=== PATIENT | male | born 1970 | race Caucasian/White ===

== ENCOUNTER 2019-09-19 15:05 | Emergency (ER) | payer OTHER ==
[~2019-09-19] VITALS: Ht 193 cm; Wt 86.3 kg
[2019-09-19 15:15] VITALS: BP 187/126
--- NOTE | 2019-09-19 15:28 | PHYS DOC ---
Past History Past Medical History: Other (Crohn's) Additional Past Medical Histor: CROHNS Past Surgical History: Appendectomy, Cholecystectomy, Other Additional Past Surgical Histo: COLON RESECTION, ILEOSTOMY AND REMOVAL, SEVERAL CROHNS SX Alcohol Use: Occasionally General Adult EDM: Chief Complaint: NEURO SYMPTOMS/DEFICITS HPI: HPI: 48-year-old male significant history of Crohn's disease no longer on immunomodulators, who presents for evaluation of sudden onset of left upper extremity pain and tingling that began about 45 minutes prior to arrival, round 2:30 PM this afternoon. He had sudden onset of pain and tingling when attempting to pick something up off the ground. He states that the pain radiated to his left upper chest as well as his left lateral neck. He developed some tingling thereafter, much improved at time of presentation, now isolated to the fingertips of the left hand. No dyspnea, headache or vision changes, speech changes, focal weakness. Review of Systems: Review of Systems: General: No fevers, chills. Eyes: No blurred vision, diplopia. ENT: No nasal congestion, sore throat. CV: No chest pain, edema. Resp: No shortness of breath, cough. GI: No abdominal pain, nausea, vomiting. : No dysuria, hematuria. Neuro: No headache, dizziness, weakness. Reports tingling. MSK: No back pain. Reports left upper extremity pain. Skin: No acute rash, lesion. Heart Score: Risk Factors: Risk Factors: DM, Current or recent (<one month) smoker, HTN, HLP, family history of CAD, obesity. Risk Scores: Score 0 - 3: 2.5% MACE over next 6 weeks - Discharge Home Score 4 - 6: 20.3% MACE over next 6 weeks - Admit for Clinical Observation Score 7 - 10: 72.7% MACE over next 6 weeks - Early Invasive Strategies Allergies: Allergies: Allergies Coded Allergies Type Severity Reaction Last Updated Verified infliximab Allergy Unknown "HEAVY CHEST" 09/19/19 Yes Physical Exam: PE: Gen: NAD. Well nourished. Head: NC/AT Eyes: No scleral icterus. No conjunctival injection. ENT: MMM. Posterior OP clear. Neck: Supple. NT. Full AROM. CV: RRR. Peripheral pulses intact. Resp: CTAB. Abd: Soft. NT. ND. MSK: No peripheral cyanosis. No edema. Neuro: A&Ox3. Strength & sensation grossly intact throughout. No fine motor weakness. No extremity drift. No dysmetria. No aphasia or dysarthria. No visual field cut. No jailyn-neglect. No facial asymmetry. NIH stroke score 0. Skin: Warm. Dry. Psych: Appropriate mood & affect. Current Patient Data: Vital Signs: Vital Signs Date Time Temp Pulse Resp B/P (MAP) Pulse Ox O2 Delivery O2 Flow Rate FiO2 09/19/19 15:15 97.9 89 22 187/126 (146) 97 Room Air EKG: EKG: EKG at 1524. Sinus rhythm. Heart rate 87. Normal intervals. No STEMI. Interpreted by me. Radiology/Procedures: Radiology/Procedures: PROCEDURE: CT HEAD AND CERVICAL SPINE WO Exam: CT head and cervical spine without contrast INDICATION: Left upper extremity tingling/pain TECHNIQUE: Sequential axial images through the head and cervical spine were obtained without the administration of IV contrast. Comparisons: None FINDINGS: Head: No focal parenchymal lesion or hemorrhage is identified. There is no midline shift or sulcal effacement. No acute vascular territory infarction is identified. Zafar-white distinction is preserved. The ventricular system is within normal limits without compression hydrocephalus. The basal cisterns are well maintained. The visualized portions of the paranasal sinuses and mastoid air cells are well-pneumatized. No acute fractures. Extensive periodontal disease is noted. Cervical spine: Vertebral body heights and alignment are well-maintained. Fracture through the cervical spine is not identified. No significant spondylotic change in cervical spine. Visualized paraspinal soft tissues are unremarkable. IMPRESSION: 1. No acute intracranial abnormality. 2. Negative CT C-spine for acute traumatic injury. Exposure: One or more of the following in the visualized dose reduction techniques were utilized for this examination: 1. Automated exposure control 2. Adjustment of the MA and/or KV according to patient size Use of iterative of reconstructive technique Electronically signed by: Soha Goel MD (09/19/2019 4:26 PM) [id number] PROCEDURE: CT ANGIOGRAPHY HEAD AND NECK EXAM: CT Angiogram of the Head and Neck INDICATION: Left upper extremity tingling and pain. TECHNIQUE: CT images were obtained through the head per standard CTA protocol. Multiplanar and 3D reformatted images were generated from the CT dataset on an independent workstation. All CT scans performed at this facility utilize dose optimization techniques as appropriate to the exam, including the following: Automated exposure control and adjustment of the mA and/or KV according to patient size (this includes techniques or standardized protocols for targeted exams where dose is indication/reason for exam). IV CONTRAST: Administered COMPARISON: None FINDINGS: CTA HEAD: No high-grade large vessel stenosis, proximal or branch vessel occlusion, aneurysm, or vascular malformation. ANTERIOR CIRCULATION: Anterior and middle cerebral arteries are widely patent. ANTERIOR COMMUNICATING ARTERY: Patent. POSTERIOR COMMUNICATING ARTERIES: Present bilaterally and patent. POSTERIOR CIRCULATION: Vertebral and basilar arteries are widely patent. Bilateral posterior inferior cerebellar arteries (PICAs), anterior inferior cerebellar arteries (AICAs), and superior cerebellar arteries (SCAs) are visualized and patent. OTHER: No abnormal brain parenchymal enhancement. The paranasal sinuses, mastoid air cells, and tympanic cavities are clear. NECK CTA: AORTA: 3 vessel configuration of arch. No dissection or acute aortic injury. No hemodynamically significant great vessel origin stenosis. RIGHT CAROTID: Common and internal carotid arteries are widely patent, without evidence of flow limiting stenosis or dissection. LEFT CAROTID: Common and internal carotid arteries are widely patent, without evidence of flow limiting stenosis or dissection. VERTEBRAL ARTERIES: Codominant. No evidence of dissection or flow limiting stenosis. SUBCLAVIAN ARTERIES:Subclavian arteries are patent without stenosis. SOFT TISSUES: Soft tissues are unremarkable. Slightly apices show paraseptal pattern emphysema. Where applicable, evaluation of ICA stenosis was performed using NASCET criteria, where the site of greatest stenosis is compared to the diameter of the ICA distal to the carotid bulb. IMPRESSION: Normal CTA of the head and neck with incidental paraseptal pattern emphysema at the lung apices noted.. Electronically signed by: Shanna Park MD (09/19/2019 4:39 PM) [id number] Course & Med Decision Making: Course & Med Decision Making Pertinent Labs and Imaging studies reviewed. (See chart for details) In summary, 48M p/w LUE pain/tingling off sudden onset when lifting a heavy object off the ground. NIHSS zero, no objective paresthesia noted. HDS, hypertensive. No tPA given minimal nondebilitating and rapidly improving symptoms. Suspect peripheral or radicular etiology at this time, though will order typical stroke workup. Asymptomatic as of 1650: Noncontrast CT head and cervical spine are negative. CT angiogram of the head and neck are unrevealing as well. The patient remains asymptomatic. Given the mechanism, with initial onset of pain followed by tingling, now resolved, I suspect radicular, brachial plexus, or peripheral etiology. Regardless, if indeed this was a TIA event, patient has a low risk ABCD2 score of 3 for presenting BP and duration of Sx, suitable for outpatient management. Patient will be discharged with outpatient PMD/neuro follow up. Return precautions given. Dragon Disclaimer: Dragon Disclaimer: This electronic medical record was generated, in whole or in part, using a voice recognition dictation system. Departure Departure: Impression: Primary Impression: Pain of left upper extremity Additional Impression: Tingling of left upper extremity Disposition: 01 HOME, SELF-CARE Condition: STABLE Referrals: PCP,UNKNOWN (PCP) SHUN REGALADO MD Patient Instructions: Paresthesia, [id number] Additional Instructions: Your CT head and cervical spine were unremarkable today. Your CT angiogram of t he head and neck did not show any blood clots or significant disease of the blood vessels. Please follow up with neurology. Consider taking a daily baby aspirin (81 mg). Return to the ED if you develop new or worsening symptoms. GEE CUELLO DO Sep 19, 2019 15:28
[2019-09-19] MEDS ORDERED: IOHEXOL 350 MG/ML 100 ML VIAL. IV ONE (15:30)
--- NOTE | 2019-09-19 15:30 | EKG ---
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
[2019-09-19 15:50] LABS: BASO % 0 % (0-3); EOS # 0.2 x10^3/uL (0.0-0.7); EOS % 2 % (0-3); HEMATOCRIT 41.6 % (39.0-53.0); HEMOGLOBIN 13.9 g/dL (13.0-17.5); LYMPH # 3.4 x10^3/uL (1.0-4.8); LYMPH % 39 % (24-48); MEAN CORPUSCULAR HEMOGLOBIN 32 pg (25-35); MEAN CORPUSCULAR HGB CONC 33 g/dL (31-37); MEAN CORPUSCULAR VOLUME 96 fL (79-100); MONO # 0.5 x10^3/uL (0.0-1.1); MONO % 6 % (0-9); NEUT # 4.5 x10^3uL (1.8-7.7); NEUT % 53 % (31-73); PLATELET COUNT 281 x10^3/uL (140-400); RED BLOOD COUNT 4.36 x10^6/uL (4.30-5.70); RED CELL DISTRIBUTION WIDTH 14.7 % (11.5-14.5); WHITE BLOOD COUNT 8.7 x10^3/uL (4.0-11.0)
[2019-09-19 16:00] LABS: CALCIUM 8.5 mg/dL (8.5-10.1); CREATININE 1.5 mg/dL (0.7-1.3); GFR 50.2; POTASSIUM 3.5 mmol/L (3.5-5.1)
[2019-09-19 16:06] LABS: ALBUMIN 3.4 g/dL (3.4-5.0); MAGNESIUM 1.9 mg/dL (1.8-2.4); TOTAL BILIRUBIN 0.3 mg/dL (0.2-1.0); TOTAL PROTEIN 6.7 g/dL (6.4-8.2)
--- NOTE | 2019-09-19 16:28 | RAD ---
Exam: CT head and cervical spine without contrast INDICATION: Left upper extremity tingling/pain TECHNIQUE: Sequential axial images through the head and cervical spine were obtained without the administration of IV contrast. Comparisons: None FINDINGS: Head: No focal parenchymal lesion or hemorrhage is identified. There is no midline shift or sulcal effacement. No acute vascular territory infarction is identified. Zafar-white distinction is preserved. The ventricular system is within normal limits without compression hydrocephalus. The basal cisterns are well maintained. The visualized portions of the paranasal sinuses and mastoid air cells are well-pneumatized. No acute fractures. Extensive periodontal disease is noted. Cervical spine: Vertebral body heights and alignment are well-maintained. Fracture through the cervical spine is not identified. No significant spondylotic change in cervical spine. Visualized paraspinal soft tissues are unremarkable. IMPRESSION: 1. No acute intracranial abnormality. 2. Negative CT C-spine for acute traumatic injury. Exposure: One or more of the following in the visualized dose reduction techniques were utilized for this examination: 1. Automated exposure control 2. Adjustment of the MA and/or KV according to patient size Use of iterative of reconstructive technique Electronically signed by: Soha Goel MD (09/19/2019 4:26 PM) [id number]
--- NOTE | 2019-09-19 16:42 | RAD ---
EXAM: CT Angiogram of the Head and Neck INDICATION: Left upper extremity tingling and pain. TECHNIQUE: CT images were obtained through the head per standard CTA protocol. Multiplanar and 3D reformatted images were generated from the CT dataset on an independent workstation. All CT scans performed at this facility utilize dose optimization techniques as appropriate to the exam, including the following: Automated exposure control and adjustment of the mA and/or KV according to patient size (this includes techniques or standardized protocols for targeted exams where dose is indication/reason for exam). IV CONTRAST: Administered COMPARISON: None FINDINGS: CTA HEAD: No high-grade large vessel stenosis, proximal or branch vessel occlusion, aneurysm, or vascular malformation. ANTERIOR CIRCULATION: Anterior and middle cerebral arteries are widely patent. ANTERIOR COMMUNICATING ARTERY: Patent. POSTERIOR COMMUNICATING ARTERIES: Present bilaterally and patent. POSTERIOR CIRCULATION: Vertebral and basilar arteries are widely patent. Bilateral posterior inferior cerebellar arteries (PICAs), anterior inferior cerebellar arteries (AICAs), and superior cerebellar arteries (SCAs) are visualized and patent. OTHER: No abnormal brain parenchymal enhancement. The paranasal sinuses, mastoid air cells, and tympanic cavities are clear. NECK CTA: AORTA: 3 vessel configuration of arch. No dissection or acute aortic injury. No hemodynamically significant great vessel origin stenosis. RIGHT CAROTID: Common and internal carotid arteries are widely patent, without evidence of flow limiting stenosis or dissection. LEFT CAROTID: Common and internal carotid arteries are widely patent, without evidence of flow limiting stenosis or dissection. VERTEBRAL ARTERIES: Codominant. No evidence of dissection or flow limiting stenosis. SUBCLAVIAN ARTERIES:Subclavian arteries are patent without stenosis. SOFT TISSUES: Soft tissues are unremarkable. Slightly apices show paraseptal pattern emphysema. Where applicable, evaluation of ICA stenosis was performed using NASCET criteria, where the site of greatest stenosis is compared to the diameter of the ICA distal to the carotid bulb. IMPRESSION: Normal CTA of the head and neck with incidental paraseptal pattern emphysema at the lung apices noted.. Electronically signed by: Shanna Park MD (09/19/2019 4:39 PM) [id number]
== END 2019-09-19 16:59 | disposition home or self-care (01) ==
LOC: ER 15:05
DX: M79.602 Pain in left arm (principal); R20.2 Paresthesia of skin; K50.90 Crohn's disease, unspecified, without complications; Z88.8 Allergy status to other drugs, medicaments and biological substances
CPT/HCPCS: 36415; 70450; 70496; 70498; 72125; 80053; 83735; 84484; 85025; 93005; 99285; Q9967

== ENCOUNTER 2020-05-12 13:22 | Emergency (ER) | payer OTHER ==
[~2020-05-12] VITALS: Ht 193 cm; Wt 88.6 kg
--- NOTE | 2020-05-12 13:56 | EKG ---
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
[2020-05-12 14:14] LABS: BASO # 0.1 x10^3/uL (0.0-0.2); BASO % 1 % (0-3); EOS # 0.1 x10^3/uL (0.0-0.7); EOS % 1 % (0-3); HEMATOCRIT 44.2 % (39.0-53.0); HEMOGLOBIN 14.5 g/dL (13.0-17.5); LYMPH # 3.5 x10^3/uL (1.0-4.8); LYMPH % 35 % (24-48); MEAN CORPUSCULAR HEMOGLOBIN 32 pg (25-35); MEAN CORPUSCULAR HGB CONC 33 g/dL (31-37); MEAN CORPUSCULAR VOLUME 99 fL (79-100); MONO # 0.7 x10^3/uL (0.0-1.1); MONO % 7 % (0-9); NEUT # 5.8 x10^3uL (1.8-7.7); NEUT % 57 % (31-73); PLATELET COUNT 336 x10^3/uL (140-400); RED BLOOD COUNT 4.48 x10^6/uL (4.30-5.70); RED CELL DISTRIBUTION WIDTH 14.9 % (11.5-14.5); WHITE BLOOD COUNT 10.3 x10^3/uL (4.0-11.0)
--- NOTE | 2020-05-12 14:18 | PHYS DOC ---
Past History Past Medical History: Other Additional Past Medical Histor: CROHNS Past Surgical History: Appendectomy, Cholecystectomy, Other Additional Past Surgical Histo: COLON RESECTION, ILEOSTOMY AND REMOVAL, SEVERAL CROHNS SX Alcohol Use: Occasionally Adult General Chief Complaint Chief Complaint: HEADACHE HPI HPI Patient is a male with history of colon resection from Crohn's disease who presents the ED today complaining of mild intermittent right forehead headache that has been going on and off since Tuesday. Patient denies this being the worst headache in his life. Denies any nausea vomiting. Denies any neck pain or fever. Denies anything specifically exacerbating or relieving his symptoms. Review of Systems Review of Systems Constitutional: Denies fever or chills [] Eyes: Denies change in visual acuity, redness, or eye pain [] HENT: Denies nasal congestion or sore throat [] Respiratory: Denies cough or shortness of breath [] Cardiovascular: No additional information not addressed in HPI [] GI: Denies abdominal pain, nausea, vomiting, bloody stools or diarrhea [] : Denies dysuria or hematuria [] Musculoskeletal: Denies back pain or joint pain [] Integument: Denies rash or skin lesions [] Neurologic: Reports right-sided headache focal weakness or sensory changes [] All other systems were reviewed and found to be within normal limits, except as documented in this note. Allergies Allergies Allergies Coded Allergies Type Severity Reaction Last Updated Verified infliximab Allergy Unknown "HEAVY CHEST" 05/12/20 Yes Physical Exam Physical Exam Constitutional: Well developed, well nourished, no acute distress, non-toxic appearance. [] HENT: Normocephalic, atraumatic, bilateral external ears normal, oropharynx moist, no oral exudates, nose normal. [] Eyes: PERRLA, EOMI, conjunctiva normal, no discharge. [] Neck: Normal range of motion, no tenderness, supple, no stridor. [] Cardiovascular:Heart rate regular rhythm, no murmur [] Lungs & Thorax: Bilateral breath sounds clear to auscultation [] Abdomen: Bowel sounds normal, soft, no tenderness, no masses, no pulsatile masses. [] Skin: Warm, dry, no erythema, no rash. [] Back: No tenderness, no CVA tenderness. [] Extremities: No tenderness, no cyanosis, no clubbing, ROM intact, no edema. [] Neurologic: Alert and oriented X 3, normal motor function, normal sensory function, no focal deficits noted. Cranial nerves II through XII intact Psychologic: Affect normal, judgement normal, mood normal. [] Current Patient Data Vital Signs Vital Signs Date Time Temp Pulse Resp B/P (MAP) Pulse Ox O2 Delivery O2 Flow Rate FiO2 05/12/20 13:28 98.4 105 18 158/115 (129) 97 Room Air EKG EKG [address] Tee sinus rhythm with left ventricular hypertrophy no STEMI[] Radiology/Procedures Radiology/Procedures [] Heart Score Risk Factors: Risk Factors: DM, Current or recent (<one month) smoker, HTN, HLP, family history of CAD, obesity. Risk Scores: Risk Factors: DM, Current or recent (<one month) smoker, HTN, HLP, family history of CAD, obesity. Course & Med Decision Making Course & Med Decision Making Pertinent Labs and Imaging studies reviewed. (See chart for details) This is a 49-year-old male patient presenting to the ED today with right-sided headache that began Tuesday. Dragon Disclaimer Dragon Disclaimer This electronic medical record was generated, in whole or in part, using a voice recognition dictation system. Departure Departure: Impression: Primary Impression: Accelerated hypertension Additional Impressions: Acute on chronic renal failure Elevated brain natriuretic peptide (BNP) level Disposition: 01 DC HOME SELF CARE/HOMELESS Condition: STABLE Referrals: PCP,NO (PCP) follow up with your doctor in the course of this week Patient Instructions: Hypertension-SportsMed Additional Instructions: You have high blood pressure. Please contact your doctor and start following up. Your kidney function is not that good either your creatinine is 1.8 normal is 0.7-1.3 . Your BNP was high at 5520 which can be an early sign of heart failure or kidney failure. Take the blood pressure medicines as ordered. Come back to the Ed at any point you symptoms worsen. Scripts Amlodipine Besylate (AMLODIPINE BESYLATE) 10 Mg Tablet 1 TAB PO DAILY, #21 TAB Prov: BRIAN GONCALVES APRN 05/12/20 Problem Qualifiers Additional Impressions: Acute on chronic renal failure Acute renal failure type: unspecified Chronic kidney disease stage: unspecified stage Qualified Codes: N17.9 - Acute kidney failure, unspecified; N18.9 - Chronic kidney disease, unspecified BRIAN GONCALVES APRN May 12, 2020 14:18
[2020-05-12 14:21] LABS: CALCIUM 9.2 mg/dL (8.5-10.1); CREATININE 1.8 mg/dL (0.7-1.3); GFR 40.5; POTASSIUM 3.6 mmol/L (3.5-5.1)
--- NOTE | 2020-05-12 14:23 | RAD ---
PORTABLE CHEST 1V 05/12/2020 1:31 PM INDICATION: Headache COMPARISON: None available TECHNIQUE: Portable frontal view of the chest is provided. FINDINGS: The cardiomediastinal silhouette is within normal limits. Lungs are clear. Left costophrenic angle is partly excluded. Minimal right apical pleural-parenchymal scarring. There are no significant pleural effusions. There is no pulmonary vascular congestion. No pneumothorax. No suspicious osseous abnormality. IMPRESSION: No acute cardiopulmonary process. Electronically signed by: Jessica Nielsen MD (05/12/2020 2:20 PM) VICTOR MANUEL
--- NOTE | 2020-05-12 14:23 | RAD ---
CT HEAD WO CONTRAST Date: 05/12/2020 1:31 PM Clinical Indication: Reason: headache / Spl. Instructions: / History: Comparison: 09/19/2019. Technique: 5 mm axial tomographic images were obtained of the head without contrast. These were viewed on brain and bone windows. One or more of the following dose reduction techniques were utilized: Automated exposure control (AEC), Adjustment of mA and/or kV according to patient size, Use of iterative reconstruction technique such as ASiR, CT scan done according to ALARA and image gently/image wisely Findings: The brain parenchyma is normal in attenuation. No intra- or extra-axial mass or fluid collection. No acute hemorrhage. The ventricles are normal in size, shape, and morphology. The camara-white matter junction is normal. The subarachnoid cisterns are patent. The visualized paranasal sinuses are normal. The visualized portions of the orbits and globes are normal. The mastoid air cells are clear. The clipper counters topogram shows no lytic lesion or fracture. Impression: No acute intracranial process. Electronically signed by: Karlos Garner MD (05/12/2020 2:20 PM) [id number]
[2020-05-12] MEDS ORDERED: cloNIDine HCL 0.1 MG TABLET PO ONE (14:30)
[2020-05-12] MEDS ORDERED: ACETAMINOPHEN 500 MG TABLET PO ONE (14:30)
[2020-05-12 14:38] LABS: ALBUMIN 3.9 g/dL (3.4-5.0); MAGNESIUM 1.9 mg/dL (1.8-2.4); TOTAL BILIRUBIN 0.6 mg/dL (0.2-1.0); TOTAL PROTEIN 7.7 g/dL (6.4-8.2)
[2020-05-12 15:03] LABS: BARBITURATES NEG (NEG); BENZODIAZEPINES NEG (NEG); CANNABINOIDS NEG (NEG); COCAINE NEG (NEG); METHADONE NEG (NEG); OPIATES NEG (NEG); PHENCYCLIDINE NEG (NEG)
[2020-05-12 15:08] LABS: BILIRUBIN,URINE NEG (NEG); CLARITY,URINE CLEAR; COLOR,URINE YELLOW; GLUCOSE,URINE NEG (NEG)
[2020-05-12 15:09] LABS: BACTERIA,URINE 0 /HPF (0-FEW); NITRITE,URINE NEG (NEG); RBC,URINE 0 /HPF (0-2); UROBILINOGEN,URINE 0.2 mg/dL (0.2 mg/dL); WBC,URINE 0 /HPF (0-4)
[2020-05-12 15:10] LABS: AMPHETAMINE/METHAMPHETAMINE NEG (NEG)
[2020-05-12] MEDS ORDERED: FUROSEMIDE 40 MG/4 ML VIAL IVP ONE (15:30)
[2020-05-12] MEDS ORDERED: AMLO-187 PO (16:25)
[2020-05-12 16:26] VITALS: BP 173/116
== END 2020-05-12 16:40 | disposition home or self-care (01) ==
LOC: ER 13:22
DX: I12.9 Hypertensive chronic kidney disease with stage 1 through stage 4 chronic kidney disease, or unspecified chronic kidney disease (principal); N18.9 Chronic kidney disease, unspecified; N17.9 Acute kidney failure, unspecified; R79.89 Other specified abnormal findings of blood chemistry; K50.90 Crohn's disease, unspecified, without complications; Z20.828 Contact with and (suspected) exposure to other viral communicable diseases; Z90.49 Acquired absence of other specified parts of digestive tract; Z90.89 Acquired absence of other organs
CPT/HCPCS: 36415; 70450; 71045; 80053; 80307; 81001; 82553; 83735; 83880; 84443; 84484; 85025; 85610; 85730; 93005; 96374; 99285; C9803; J1940; U0003

== ENCOUNTER → 2020-07-08 | Outpatient (CLI) | payer OTHER ==
[~2020-07-08] MED LIST: AMLO-187 PO
--- NOTE | 2020-07-08 17:20 | RAD ---
INDICATION: Reason: CKD STAGE 3 / Spl. Instructions: / History: COMPARISON: None. TECHNIQUE: Grayscale and color ultrasound images obtained of the bilateral kidneys and bladder. FINDINGS: Right Kidney: 95 mm. No hydronephrosis. Left Kidney: 84 mm. No hydronephrosis. Bladder: Decompressed IMPRESSION: * No hydronephrosis bilaterally. Electronically signed by: Roberto Brunson MD (07/08/2020 5:18 PM) [id number]
== END ==
LOC: US 12:38
PROVIDERS: ATTEND Family Medicine
DX: N18.31 Chronic kidney disease, stage 3a (principal)
CPT/HCPCS: 76770

== ENCOUNTER 2020-09-12 20:55 | Emergency (ER) | payer OTHER ==
[~2020-09-12] VITALS: Ht 193 cm; Wt 88.6 kg
--- NOTE | 2020-09-12 21:17 | PHYS DOC ---
Past History Past Medical History: Other Additional Past Medical Histor: CROHNS Past Surgical History: Appendectomy, Cholecystectomy, Other Additional Past Surgical Histo: COLON RESECTION, ILEOSTOMY AND REMOVAL, SEVERAL CROHNS SX Alcohol Use: Occasionally General Adult EDM: Chief Complaint: HYPERTENSION HPI: HPI: 49-year-old male with significant history of hypertension on amlodipine 10 mg daily, Crohn's disease, who presents for evaluation of asymptomatic hypertension. The patient states that he checked his blood pressure prior to arrival, and his blood pressure was noted to be elevated at 189 systolic. He took his amlodipine as scheduled for this morning at around 0530. The patient has a follow-up appointment with his primary physician on Tuesday to discuss starting a second agent, likely losartan. Patient denies any headache, neck pain or stiffness, chest pain or dyspnea, abdominal pain, nausea, vomiting, focal weakness or paresthesia. Review of Systems: Review of Systems: Gen: No fever, chills. Eyes: No blurred vision, diplopia. ENT: No nasal congestion, sore throat. CV: No CP, palpitations. Resp. No SOB, cough. GI: No abd pain, N/V. : No dysuria, hematuria. Neuro: No MOERNO, dizziness, weakness. MSK: No myalgia, arthralgia, back pain. Remainder of systems reviewed and negative unless otherwise specified. Allergies: Allergies: Allergies Coded Allergies Type Severity Reaction Last Updated Verified infliximab Allergy Unknown "HEAVY CHEST" 05/12/20 Yes Physical Exam: PE: Gen: NAD. Well nourished. Head: NC/AT. Eyes: No scleral icterus. No conjunctival injection. PERRL. EOMI. No inducible nystagmus. ENT: MMM. Posterior OP clear. Neck: Supple. NT. No JVD. No meningismus. CV: RRR. Peripheral pulses intact. Resp: CTAB. Abd: Soft. NT. ND. MSK: No peripheral cyanosis. No edema. Neuro: A&Ox3. Strength & sensation grossly intact throughout. No dysmetria. Skin. Warm. Dry. No acute rash. Psych: Appropriate mood & affect. EKG: EKG: [] Radiology/Procedures: Radiology/Procedures: [] Heart Score: C/O Chest Pain: N/A Risk Factors: Risk Factors: DM, Current or recent (<one month) smoker, HTN, HLP, family history of CAD, obesity. Risk Scores: Score 0 - 3: 2.5% MACE over next 6 weeks - Discharge Home Score 4 - 6: 20.3% MACE over next 6 weeks - Admit for Clinical Observation Score 7 - 10: 72.7% MACE over next 6 weeks - Early Invasive Strategies Course & Med Decision Making: Course & Med Decision Making Pertinent Labs and Imaging studies reviewed. (See chart for details) In summary, 49-year-old male with history of hypertension on amlodipine 10 mg, who presents for evaluation of asymptomatic hypertension. No acute medical complaints. No clinical signs or symptoms concerning for endorgan failure. No additional work-up per [facility] clinical policy on asymptomatic hypertension. After a shared decision-making discussion, the patient has opted to go home, which I feel would be reasonable. The patient will be started on a low-dose of losartan 25 mg daily until he can be seen by his primary physician on Tuesday. Outpat ient follow-up. Return precautions given. Rafaela Disclaimer: Rafaela Disclaimer: This electronic medical record was generated, in whole or in part, using a voice recognition dictation system. Departure Departure: Impression: Primary Impression: Hypertension Disposition: 01 DC HOME SELF CARE/HOMELESS Condition: STABLE Referrals: NEIDA FAITH MD (PCP) Patient Instructions: Hypertension, [id number] Additional Instructions: Follow-up as scheduled with your primary care physician on Tuesday for further evaluation of your hypertension. Scripts Losartan Potassium (LOSARTAN POTASSIUM ) 25 Mg Tablet 25 MG PO DAILY for HYPERTENSION, #14 TAB Prov: GEE CUELLO DO 09/12/20 GEE CUELLO DO Sep 12, 2020 21:17
[2020-09-12] MEDS ORDERED: LOSA25TA11 PO (21:23)
[2020-09-12 21:38] VITALS: BP 157/94
== END 2020-09-12 21:42 | disposition home or self-care (01) ==
LOC: ER 20:55
DX: I10 Essential (primary) hypertension (principal); K50.90 Crohn's disease, unspecified, without complications; Z88.8 Allergy status to other drugs, medicaments and biological substances
CPT/HCPCS: 99283